=== PATIENT | male | born 1980 | race Caucasian/White ===

== ENCOUNTER 2018-12-21 20:34 | Emergency (ER) | payer BC ==
[2018-12-21] MEDS ORDERED: Acetaminophen/HYDROcodone 325-5 MG Tab ONE (21:00)
[2018-12-21] MEDS ORDERED: Ibuprofen 800 MG Tab ONE (21:00)
[2018-12-21] MEDS ORDERED: Acetaminophen/HYDROcodone 325-10 MG Tab PO ONE (21:20)
--- NOTE | 2018-12-21 21:29 | EDM.PDOC ---
ED HPI GENERAL MEDICAL PROBLEM - General Chief Complaint: General Stated Complaint: POSSIBLE LUE FX Time Seen by Provider: 12/21/18 21:10 Source of Information: Reports: Patient History Limitations: Reports: No Limitations - History of Present Illness INITIAL COMMENTS - FREE TEXT/NARRATIVE: This patient presents to the ED for evaluation of left upper extremity pain. He initally states he fell and then later states he did not fall but was shoveling snow when his arm broke. He states he fell down a flight of stairs and sustained a humeral head fracture that was treated with ORIF at [facility] approximately 10 weeks ago. He denies other injuries or concerns. 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 (see below) (denies any medication) ED ROS GENERAL - Review of Systems Review Of Systems: See Below Constitutional: Reports: No Symptoms HEENT: Reports: No Symptoms Respiratory: Reports: No Symptoms Cardiovascular: Reports: No Symptoms GI/Abdominal: Reports: No Symptoms Musculoskeletal: Reports: Arm Pain Skin: Reports: No Symptoms Neurological: Reports: No Symptoms ED EXAM, GENERAL - Physical Exam Exam: See Below Exam Limited By: No Limitations General Appearance: Alert, WD/WN, No Apparent Distress Eye Exam: Bilateral Eye: PERRL (pinpoint) Ears: Normal External Exam Nose: Normal Inspection Throat/Mouth: Normal Inspection Head: Atraumatic Neck: Normal Inspection Respiratory/Chest: No Respiratory Distress Extremities: Other (deformity to left upper extremity. No open wounds, some swelling midshaft with no discoloration. Distal CMS intact.) Course - Orders/Labs/Meds Orders: Active Orders 24 hr Category Date Time Status Shoulder Comp Lt [CR] Stat Exams 12/21/18 20:37 Taken Meds: Medications Discontinued Medications Generic Name Dose Route Start Last Admin Trade Name Freq PRN Reason Stop Dose Admin Hydrocodone Bitart/Acetaminophen 1 tab 12/21/18 21:20 [place] 325-10 Mg PO 12/21/18 21:21 ONETIME ONE - Radiology Interpretation Free Text/Narrative:: Comminuted displaced fracture of humeral shaft distal to the internal fixation device. - Re-Assessments/Exams Free Text/Narrative Re-Assessment/Exam: 12/21/18 22:05 This patient presents to the ED for evaluation of left upper arm pain. History is unclear but physical findings are significant for a comminuted displaced fractue of the left humeral shaft distal to internal fixation device. X-rays were pushed to [facility] where this patient had surgery on his arm. I then spoke to Dr. Benton who endorsed the treatment provided here and recommended the patient return to [place] for further care in the ortho clinic on Monday, 12/24. The patient was given a prescription for hydrocodone (5/325) and instructed to use 2 tablets every 6 hours for severe pain and ibuprofen 800 mg every 8 hours. He was instructed to return to [place] and present to the ED there if he felt his pain was not adequately managed with this treatment plan. Departure - Departure Time of Disposition: : Disposition: Home, Self-Care 01 Condition: Fair Clinical Impression: Humeral fracture - Discharge Information *PRESCRIPTION DRUG MONITORING PROGRAM REVIEWED*: Yes *COPY OF PRESCRIPTION DRUG MONITORING REPORT IN PATIENT [place]: No Instructions: How to Use a Shoulder Immobilizer, Cast or Splint Care, Adult, [id number] Forms: ED Department Discharge Additional Instructions: May take provided Ibuprofen as directed: 1 tablet every 8 hours as needed for pain. Provided Vicodin may be taken as directed: 2 tablets by mouth every 6-8 hours as needed for pain. Follow up at [facility] on Monday for follow up with orthopedics, or sooner if needed. Continue with ice pack to affected area. Diet and activity as tolerated. Call with any questions. - My Orders Last 24 Hours: My Active Orders 12/21/18 20:37 Shoulder Comp Lt [CR] Stat - Assessment/Plan Last 24 Hours: My Active Orders 12/21/18 20:37 Shoulder Comp Lt [CR] Stat
--- NOTE | 2018-12-22 11:12 | PCM.SN ---
- Free Text/Narrative Note: This patient contacted the ED via phone requesting additional narcotic pain medications or "even just a shot of medicine today stating he "decided to stay in the area longer." Discharge instructions reiterated to patient: if discharge medications were insufficient for pain management, he should return to [place] and present to [place] ED over the weekend or to his orthopedic surgeon's office on Monday.
--- NOTE | 2018-12-23 21:22 | CR ---
DATE OF SERVICE: 12/21/2018 CLINICAL DATA: LUE DEFORMITY. LEFT SHOULDER: No priors. There is a healed fracture through the humeral neck. There is internal fixation with a metallic sideplate and multiple screws. There is an acute mildly displaced fracture through the humeral shaft adjacent to the distal aspect of the internal fixation device. No other acute abnormalities. IMPRESSION: Acute fracture. See above. [id number] [facility]
== END 2018-12-21 22:05 | disposition home or self-care (01) ==
LOC: LB.ED 20:34
DX: S42.352A Displaced comminuted fracture of shaft of humerus, left arm, initial encounter for closed fracture (principal); Z96.698 Presence of other orthopedic joint implants; X50.0XXA Overexertion from strenuous movement or load, initial encounter
CPT/HCPCS: 73030; 99283; A9270